=== PATIENT | male | born 1990 | race Caucasian/White ===

== ENCOUNTER 2016-04-03 22:35 | Observation (INO) | payer SELFPAY ==
[~2016-04-03] VITALS: Ht 185.4 cm; Wt 70.3 kg
[2016-04-03] MEDS ORDERED: HYDROMORPHONE 2 MG/ML VIAL. IV PRN (23:15)
[2016-04-03] MEDS ORDERED: IV NORMAL SALINE 1000ML BAG 1,000 ML IV ONE (23:15)
[2016-04-03] MEDS ORDERED: ONDANSETRON PF 4 MG/2 ML VIAL. IV ONE (23:15)
[2016-04-03 23:19] LABS: BASO # 0.1 x10^3/uL (0.0-0.2); BASO % 0 % (0-3); EOS % 2 % (0-3); HEMATOCRIT 45.9 % (39.0-53.0); HEMOGLOBIN 15.3 g/dL (13.0-17.5); LYMPH # 2.9 x10^3/uL (1.0-4.8); LYMPH % 17 % (24-48); MEAN CORPUSCULAR HEMOGLOBIN 32 pg (25-35); MEAN CORPUSCULAR HGB CONC 33 g/dL (31-37); MEAN CORPUSCULAR VOLUME 96 fL (79-100); MONO % 7 % (0-9); NEUT % 74 % (31-73); PLATELET COUNT 189 x10^3/uL (140-400); RED BLOOD COUNT 4.76 x10^6/uL (4.30-5.70); RED CELL DISTRIBUTION WIDTH 13.4 % (11.5-14.5); WHITE BLOOD COUNT 17.7 x10^3/uL (4.0-11.0)
[2016-04-03 23:32] LABS: CALCIUM 8.9 mg/dL (8.5-10.1); GFR 92.6; POTASSIUM 4.2 mmol/L (3.5-5.1)
[2016-04-03 23:38] LABS: ALBUMIN 4.4 g/dL (3.4-5.0); ALBUMIN/GLOBULIN RATIO 1.6 (1.0-1.7); TOTAL BILIRUBIN 0.3 mg/dL (0.2-1.0); TOTAL PROTEIN 7.2 g/dL (6.4-8.2)
[2016-04-04] MEDS ORDERED: IOHEXOL 300 MG/ML 100ML VIAL. IV ONE (00:15)
[2016-04-04] MEDS ORDERED: CONTRAST GIVEN MC PRN (00:15)
[2016-04-04 00:20] LABS: BACTERIA,URINE 0 /HPF (0-FEW); BILIRUBIN,URINE NEGATIVE (NEG); GLUCOSE,URINE NEGATIVE (NEG); NITRITE,URINE NEGATIVE (NEG); PH,URINE 7.5; PROTEIN,URINE NEGATIVE (NEG-TRACE); RBC,URINE 0 /HPF (0-2); WBC,URINE 0 /HPF (0-4)
--- NOTE | 2016-04-04 00:52 | RAD ---
PROCEDURE Abdomen and pelvis CT with intravenous contrast. HISTORY Right lower quadrant pain. TECHNIQUE Computed tomographic images of the abdomen pelvis were obtained following the administration of 75 cc Omnipaque 300 intravenous contrast. One or more of the following individualized dose reduction techniques were utilized for this examination: 1. Automated exposure control; 2. Adjustment of the mA and/or kV according to patient size; 3. Use of iterative reconstruction technique. COMPARISON None. FINDINGS Evaluation of the lower thorax demonstrates focal pleural-parenchymal scarring within the posterior lateral right lower lobe. There is no infiltrate or effusion. No hepatic lesion is seen. The gallbladder, pancreas, spleen, adrenal glands and kidneys are unremarkable. The appendix is dilated to a caliber of 8 mm and there is surrounding trace periappendiceal fluid suggesting acute appendicitis. No perforation is seen. There is no bowel obstruction. There is no pathologically enlarged lymph node. The bladder is unremarkable. The osseous structures are unremarkable. IMPRESSION Mildly dilated appendix with trace surrounding fluid suggesting acute appendicitis. No perforation is seen. Electronically signed by: Karli Duff (Apr 04, 2016 00:49:51)
[2016-04-04] MEDS ORDERED: IV NORMAL SALINE 1000ML BAG 1,000 ML IV ONE ×2 (01:15→01:30)
--- NOTE | 2016-04-04 01:15 | PHYS DOC ---
Past Medical History Past Medical History: No Pertinent History Past Surgical History: No Surgical History Alcohol Use: Rarely Drug Use: Marijuana Adult General Chief Complaint Chief Complaint: ABDOMINAL PAIN HPI HPI 25-year-old male presenting the emergency department with right lower quadrant abdominal pain. His pain is sharp nonradiating moderate, has been present since this morning. He rates it at is 6 and 10. He denies fevers or chills. He denies nausea vomiting. Review of Systems Review of Systems ROS negative for chest pain shortness of breath fevers or chills. Negative for headaches All other review of systems is negative unless otherwise noted in history of present illness. Current Medications Current Medications Current Medications Medications (Trade) Dose Ordered Sig/Lena Start Time Stop Time Status Last Admin Dose Admin Hydromorphone HCl (Dilaudid) 0.5 mg PRN Q1HR PRN 04/03/16 23:15 04/03/16 23:28 0.5 MG Info (Do NOT chart on this entry -- for MONITORING) 1 each PRN DAILY PRN 04/04/16 00:15 04/06/16 00:14 Iohexol (Omnipaque 300 Mg/ml) 75 ml 1X ONCE 04/04/16 00:15 04/04/16 00:16 DC 04/04/16 00:22 75 ML Morphine Sulfate 2 mg 2 mg PRN Q2HR PRN 04/04/16 01:30 04/05/16 01:29 04/04/16 02:17 2 MG Ondansetron HCl (Zofran) 4 mg PRN Q8HRS PRN 04/04/16 01:30 04/05/16 01:29 Piperacillin Sod/ Tazobactam Sod 1 each 1 each PRN DAILY PRN 04/04/16 01:30 Piperacillin Sod/ Tazobactam Sod/ Sodium Chloride (Zosyn/Iv Sodium Chloride 0.9% 50ml) 50 ml @ 100 mls/hr 1X ONCE 04/04/16 02:00 04/04/16 02:29 DC 04/04/16 02:07 100 MLS/HR Sodium Chloride 1,000 ml @ 100 mls/hr 1X ONCE 04/04/16 01:30 04/04/16 11:29 Sodium Chloride (Iv Sodium Chloride 0.9% 1000ml Bag) 1,000 ml @ 1,000 mls/hr 1X ONCE 04/04/16 01:15 04/04/16 02:14 DC 04/04/16 02:05 1,000 MLS/HR Allergies Allergies Allergies Coded Allergies Type Severity Reaction Last Updated Verified No Known Drug Allergies 11/05/13 No Physical Exam Physical Exam Constitutional: Well developed, well nourished, no acute distress, non-toxic appearance. [] HENT: Normocephalic, atraumatic, bilateral external ears normal, oropharynx moist, no oral exudates, nose normal. [] Eyes: PERRLA, EOMI, conjunctiva normal, no discharge. [] Neck: Normal range of motion, no tenderness, supple, no stridor. [] Cardiovascular:Heart rate regular rhythm, no murmur [] Lungs & Thorax: Bilateral breath sounds clear to auscultation [] Abdomen: Soft and tender in the right lower quadrant. Positive McBurney's point. Negative Jerome sign. No rebound tenderness present Skin: Warm, dry, no erythema, no rash. [] Back: No tenderness, no CVA tenderness. [] Extremities: No tenderness, no cyanosis, no clubbing, ROM intact, no edema. [] Neurologic: Alert and oriented X 3, normal motor function, normal sensory function, no focal deficits noted. [] Psychologic: Affect normal, judgement normal, mood normal. [] Current Patient Data Vital Signs Vital Signs Date Time Temp Pulse Resp B/P Pulse Ox O2 Delivery O2 Flow Rate FiO2 04/04/16 00:00 Room Air 04/03/16 22:43 98.1 75 20 171/66 99 98.1 Lab Values Laboratory Tests Test 04/03/16 22:50 04/03/16 23:50 White Blood Count 17.7x10^3/uL (4.0-11.0) H Red Blood Count 4.76x10^6/uL (4.30-5.70) Hemoglobin 15.3g/dL (13.0-17.5) Hematocrit 45.9% (39.0-53.0) Mean Corpuscular Volume 96fL (79-100) Mean Corpuscular Hemoglobin 32pg (25-35) Mean Corpuscular Hemoglobin Concent 33g/dL (31-37) Red Cell Distribution Width 13.4% (11.5-14.5) Platelet Count 189x10^3/uL (140-400) Neutrophils (%) (Auto) 74% (31-73) H Lymphocytes (%) (Auto) 17% (24-48) L Monocytes (%) (Auto) 7% (0-9) Eosinophils (%) (Auto) 2% (0-3) Basophils (%) (Auto) 0% (0-3) Neutrophils # (Auto) 13.2x10^3uL (1.8-7.7) H Lymphocytes # (Auto) 2.9x10^3/uL (1.0-4.8) Monocytes # (Auto) 1.3x10^3/uL (0.0-1.1) H Eosinophils # (Auto) 0.3x10^3/uL (0.0-0.7) Basophils # (Auto) 0.1x10^3/uL (0.0-0.2) Platelet Estimate Pending Sodium Level 142mmol/L (136-145) Potassium Level 4.2mmol/L (3.5-5.1) Chloride Level 105mmol/L (98-107) Carbon Dioxide Level 27mmol/L (21-32) Anion Gap 10 (6-14) Blood Urea Nitrogen 16mg/dL (8-26) Creatinine 1.0mg/dL (0.7-1.3) Estimated GFR (Cockcroft-Gault) 92.6 BUN/Creatinine Ratio 16 (6-20) Glucose Level 108mg/dL (70-99) H Calcium Level 8.9mg/dL (8.5-10.1) Total Bilirubin 0.3mg/dL (0.2-1.0) Aspartate Amino Transferase (AST) 16U/L (15-37) Alanine Aminotransferase (ALT) 24U/L (16-63) Alkaline Phosphatase 78U/L (46-116) Troponin I Quantitative < 0.017ng/mL (0.000-0.055) Total Protein 7.2g/dL (6.4-8.2) Albumin 4.4g/dL (3.4-5.0) Albumin/Globulin Ratio 1.6 (1.0-1.7) Lipase 98U/L (73-393) Urine Collection Type Unknown Urine Color Yellow Urine Clarity Hazy Urine pH 7.5 Urine Specific [place] 1.025 Urine Protein Negativemg/dL (NEG-TRACE) Urine Glucose (UA) Negativemg/dL (NEG) Urine Ketones (Stick) Negativemg/dL (NEG) Urine Blood Negative (NEG) Urine Nitrite Negative (NEG) Urine Bilirubin Negative (NEG) Urine Urobilinogen Dipstick 1.0mg/dL (0.2 mg/dL) Urine Leukocyte Esterase Negative (NEG) Urine RBC 0/HPF (0-2) Urine WBC 0/HPF (0-4) Urine Amorphous Sediment Present/HPF Urine Bacteria 0/HPF (0-FEW) Urine Mucus Mod/LPF Laboratory Tests 04/03/16 22:50 Laboratory Tests 04/03/16 22:50 EKG EKG [] Radiology/Procedures Radiology/Procedures [] CT the abdomen and pelvis consistent with appendicitis. Course & Med Decision Making Course & Med Decision Making Pertinent Labs and Imaging studies reviewed. (See chart for details) [] 25-year-old male presenting with right lower quadrant abdominal pain. Signs and symptoms suggestive of appendicitis. Blood work showed elevated white count. CT abdomen and pelvis confirmed appendicitis. IV fluids administered. IV antibiotics ordered. The patient was then admitted to our hospital for surgical treatment. Dragon Disclaimer Dragon Disclaimer This electronic medical record was generated, in whole or in part, using a voice recognition dictation system. Departure Departure Impression: Primary Impression: Acute appendicitis Disposition: 09 ADMITTED INPATIENT Admitting Physician: Edi Aceves Condition: STABLE Referrals: NO PCP (PCP) SHAUN SANTOYO MD Apr 04, 2016 01:15
--- NOTE | 2016-04-04 01:27 | ACF ---
Admission Forms Criteria ABDOMINAL PAIN Clinical Indications for Admission to Inpatient Care (Place 'X' for any and all applicable criteria): Admission is indicated for ANY ONE of the following(1)(2)(3)(4)(5): [X]I. Inpatient admission required rather than observation care (Also use Abdominal Pain: Observation Care, as appropriate) because of ANY ONE of the following: [ ]a) Severe pain requiring acute inpatient management [ ]b) Identification of etiology/finding that requires inpatient care (eg, aortic dissection, free air) [ ]c) Absent bowel sounds with complete ileus(6) [ ]d) Suspected toxic megacolon [ ]e) Severe electrolyte abnormalities requiring inpatient care [ ]f) High fever or infection requiring inpatient admission as indicated by ANY ONE of following(7)(8): [ ] i) Appropriate outpatient or observational care antimicrobial treatment unavailable, not effective, or not feasible [ ] ii) Documented bacteremia [ ] iii) Temperature > 104.9 degrees F (oral) [ ] iv) T >103.1 F (oral) or < 96.8 F(rectal) that does not respond to all emergency treatment measures [ ]g) Signs of intestinal obstruction [B] [ ]h) Hemodynamic instability [ ]i) IV fluid to replace significant ongoing losses (greater than 3 L/m2 per day) (12)(13) [ ]j) Percutaneous or open drainage (eg, abscess, biliary tract ) procedures [ ]k) Parenteral nutrition regimen that must be implemented on inpatient basis [X]l) Other condition,treatment or monitoring requiring inpatient admission. [ ]II. Peritoneal signs present [ ]III. Surgery needed that cannot be performed on an ambulatory basis. [ ]IV. Evaluation requires patient to not eat or drink for extended period ( eg, more than 24 hours). [ ]V. Contraindications and/or Inappropriate clinical situations for Observational Care in patients with abdominal pain, when ANY ONE of the following is required: [ ]a) Thorough evaluation is required to prevent catastrophic events due to delays in diagnosing (e.g.Mesenteric ischemia) 1,3 [ ]b) Patient with severe pathology or with chronic symptoms unlikely to improve in the ED stay (3) [ ]. General contraindications and/or Inappropriate clinical situations for Observational Care in patients with abdominal pain, when ANY ONE of the following is required: [ ]a) Prediction of prolongation of LOS based on ANY ONE of the following may be considered as a contraindication for observational care 2, 3, 4, 5, 6, 7, 8, 9, 10, 11 [ ]i) Age > 65 yrs. [ ]ii) Patient arriving by ambulance [ ]iii) Patient with high acuity [ ]iv) Patient requiring vital sign monitoring [ ]v) Patient on IV medication [ ]b) Systolic blood pressures 180mmHg 3,12 [ ]c) Patient with altered mental status including delirium and other alteration of consciousness, (3) [ ]d) Patient whose discharge disposition will be to a correction home or rehabilitation home should not be managed in Emergency Department Observation Unit. CMS rule requires 3 days hospital stay before such placement.3,13 [ ]e) Patient with failure to thrive due to broad array of etiologies 3,16,17 [ ]f) Inability to ambulate 3,14 Extended stay beyond goal length of stay may be needed for(2)(3): [ ]a) Persistent abdominal pain with suspected intra-abdominal process [ ]b) Diagnosed condition requiring continued stay (e.g., pancreatitis, complicated diverticulitis) [ ]c) Surgery (e.g., colectomy) The original [facility] content created by [employer] has been revised. The portions of the content which have been revised are identified through the use of italic text or in bold, and [facility] has neither reviewed nor approved the modified material.All other unmodified content is copyright [employer]. Please see references footnoted in the original [facility] edition 2016 Admission Criteria Met?: Pending SHARRON ANDREA Apr 04, 2016 01:27
[2016-04-04] MEDS ORDERED: PIP/TAZO PER PHARMACY MC PRN (01:30)
[2016-04-04] MEDS ORDERED: ONDANSETRON PF 4 MG/2 ML VIAL. IV PRN ×3 (01:30→13:00)
[2016-04-04] MEDS ORDERED: PIPERACILLIN/TAZOBACTAM 3.375 GM in IV NORMAL SALINE 50ML 50 ML IV ONE (02:00)
[2016-04-04] MEDS: MORPHINE SULFATE 2 MG/ML DISP.SYRIN. IV PRN ×2 (02:17→05:54)
[2016-04-04 03:30] VITALS: BP 143/84
[2016-04-04 04:57] LABS: % EOS 2 % (0-5); PLT ESTIMATE ADEQUATE (ADEQUATE)
[2016-04-04] MEDS: PIPERACILLIN/TAZOBACTAM 3.375 GM in IV NORMAL SALINE 50ML 50 ML IV SCH ×2 (05:55→11:59)
[2016-04-04 07:00] VITALS: BP 146/58
[2016-04-04] MEDS ORDERED: METRONIDAZOLE 500mg PREMIX 100 ML IV ONE (08:15)
[2016-04-04] MEDS ORDERED: IV RINGERS,LACTATED 1000ML 1,000 ML IV SCH (08:26)
[2016-04-04] MEDS ORDERED: PROCHLORPERAZINE 10 MG/2 ML VIAL. IV PRN (08:30)
[2016-04-04] MEDS ORDERED: FENTANYL PF 100 MCG/2 ML VIAL. IV PRN (08:30)
[2016-04-04] MEDS ORDERED: MORPHINE SULFATE 2 MG/ML DISP.SYRIN. IV PRN (08:30)
[2016-04-04] MEDS ORDERED: HYDROMORPHONE 2 MG/ML VIAL. IV PRN ×3 (08:30→13:11)
[2016-04-04] MEDS ORDERED: LIDOCAINE 1% 1 ML SYRINGE. ID PRN (08:30)
[2016-04-04] MEDS ORDERED: NICOTINE 21MG PATCH. TD SCH (09:00)
[2016-04-04] MEDS ORDERED: SEVOFLURANE 31 TO 60 MINUTES. IH ONE (10:40)
[2016-04-04] MEDS ORDERED: SEVOFLURANE > 120 MINUTES. IH ONE (10:40)
[2016-04-04] MEDS ORDERED: FENTANYL PF 100 MCG/2 ML VIAL. ONE ×2 (10:41→12:31)
[2016-04-04] MEDS ORDERED: MIDAZOLAM HCL 2 MG/2 ML VIAL. ONE (10:41)
[2016-04-04] MEDS ORDERED: PROPOFOL 20 ML IV ONE (10:42)
[2016-04-04] MEDS ORDERED: GLYCOPYRROLATE 1 MG/5 ML VIAL. ONE (10:42)
[2016-04-04] MEDS ORDERED: NEOSTIGMINE METHYLSULFATE 5 MG/5 ML SYRINGE. ONE (10:42)
[2016-04-04] MEDS ORDERED: ONDANSETRON PF 4 MG/2 ML VIAL. ONE (10:43)
[2016-04-04] MEDS ORDERED: KETOROLAC 30 MG/ML SYRINGE FOR OR. INJ ONE (10:43)
[2016-04-04] MEDS ORDERED: ROCURONIUM 50 MG/5 ML VIAL. ONE (10:43)
[2016-04-04] MEDS ORDERED: LIDOCAINE 2% 100 MG/5 ML DISP.SYRIN. ONE (10:43)
[2016-04-04] MEDS ORDERED: DEXAMETHASONE SOD PHOS 20 MG/5 ML VIAL. ONE (10:43)
[2016-04-04] MEDS ORDERED: SUCCINYLCHOLINE 200 MG/10 ML VIAL. ONE (10:44)
--- NOTE | 2016-04-04 11:33 | HP ---
ADMIT DATE: 04/04/2016 CHIEF COMPLAINT: Abdominal pain. HISTORY OF PRESENT ILLNESS: The patient is a pleasant 25-year-old healthy male who presents with right lower quadrant pain, rates it at 10/10. He has associated nausea. It has been going on for a couple of days. CT of the abdomen is showing a probable appendicitis. I discussed the case with ER physician. We have admitted the patient. We have consulted . I think the patient is going to surgery today. PAST MEDICAL HISTORY: None. ALLERGIES: None. FAMILY HISTORY: Hypertension. SOCIAL HISTORY: Does not drink, smoke or take drugs. MEDICATIONS: Reviewed, please refer to the MRAD. REVIEW OF SYSTEMS: GENERAL: No history of weight change, weakness or fevers. SKIN: No bruising, hair changes or rashes. EYES: No blurred, double or loss of vision. NOSE AND THROAT: No history of nosebleeds, hoarseness or sore throat. HEART: No history of palpitations, chest pain or shortness of breath on exertion. LUNGS: Denies cough, hemoptysis, wheezing or shortness of breath. GASTROINTESTINAL: He complains of abdominal pain. GENITOURINARY: No history of frequency, urgency, hesitancy or nocturia. NEUROLOGIC: Denies history of numbness, tingling, tremor or weakness. PSYCHIATRIC: No history of panic, anxiety or depression. ENDOCRINE: No history of heat or cold intolerance, polyuria or polydipsia. EXTREMITIES: Denies muscle weakness, joint pain, pain on walking or stiffness. PHYSICAL EXAMINATION: VITAL SIGNS: Temperature afebrile, pulse 50, respirations 18, blood pressure 146/60. GENERAL: He is alert, cooperative. HEART: Normal S1, S2 at 60 beats per minute. LUNGS: Clear. ABDOMEN: Soft, positive bowel sounds, tender in the lower quadrant on the right. EXTREMITIES: No edema. SKIN: He has got multiple tattoos. ENDOCRINE: No thyromegaly. LYMPHATICS: No cervical nodes. HEMATOPOIETIC: No bruising. LABORATORY DATA: White count 17.7, hemoglobin 15, platelets 189. Electrolytes normal. Troponin is 0. CT of the abdomen shows appendicitis. Urinalysis is negative. ASSESSMENT AND PLAN: Appendicitis. The patient has been admitted. him IV Zosyn. Consult General Surgery. Narcotics p.r.n., p.r.n. antiemetics, IV fluids. ESTEFANIA WAITE DO DR: GRACE/teddy JOB#: [id number] / [id number]
[2016-04-04] MEDS ORDERED: POTASSIUM CL 20MEQ-0.45% NACL 1,000 ML IV SCH (12:50)
--- NOTE | 2016-04-04 12:50 | PDOC ---
BRIEF OPERATIVE NOTE Date: Apr 04, 2016 Pre-Op Diagnosis acute appendicitis Post-Op Diagnosis same Procedure Performed l/s appendectomy Surgeon Osmar Anesthesia Type: General Blood Loss 5cc IV Fluid 800cc Urine Output 175cc Specimens Obtained appendix Findings acute suppurative appendicitis without rupture Complications none Additional Remarks Wk # [id number] TRIXIE MANZANO MD Apr 04, 2016 12:50
[2016-04-04] MEDS: FENTANYL PF 100 MCG/2 ML VIAL. IV PRN ×2 (12:57→13:01)
[2016-04-04] MEDS ORDERED: OXYCODONE/APAP 5/325 TABLET. PO PRN (13:00)
[2016-04-04] MEDS ORDERED: DIPHENHYDRAMINE 50 MG/ML VIAL IV PRN (13:00)
[2016-04-04] MEDS ORDERED: 0.9 % SODIUM CHLORIDE 10 ML DISP.SYRIN. IV PRN (13:00)
[2016-04-04] MEDS ORDERED: DEXTROSE 50% 25 GM / 50ML DISP.SYRIN. IV PRN (13:00)
[2016-04-04] MEDS ORDERED: DIPHENHYDRAMINE HCL 25 MG CAPSULE PO PRN (13:00)
[2016-04-04 13:30] VITALS: BP_SYST 114; BP_SYST 125; BP_SYST 132; BP_SYST 135; BP_SYST 141; BP_SYST 143; BP_DIAS 54; BP_DIAS 62; BP_DIAS 65; BP_DIAS 75; BP_DIAS 79; BP_DIAS 81; BP_DIAS 82
[2016-04-04 15:00] VITALS: BP 123/60
--- NOTE | 2016-04-04 17:09 | OP ---
DATE OF SURGERY: 04/04/2016 PREOPERATIVE DIAGNOSIS: Acute appendicitis. POSTOPERATIVE DIAGNOSIS: Acute appendicitis. PROCEDURE: Laparoscopic appendectomy. SURGEON: Fahad Manzano MD. ANESTHESIA: General endotracheal. BLOOD LOSS: 5 mL. IV FLUID: 800 mL. URINE OUTPUT: 175 mL. INDICATIONS: The patient is a 25-year-old with right lower quadrant pain and a CT scan consistent with acute appendicitis, brought for appendectomy. OPERATIVE FINDINGS: He did indeed have an acute suppurative appendicitis without evidence of rupture. DESCRIPTION OF PROCEDURE: The patient brought to the operating suite, given a general endotracheal anesthetic and the abdomen prepped and draped in usual sterile fashion after placement of a Tubbs catheter to dependent drainage. An infraumbilical incision was made and a 5 mm Visiport used to gain access into the abdominal cavity. Care was taken to avoid injury to abdominal contents. Pneumoperitoneum established. Camera inserted and inspection carried out with results as noted above. With the table in Trendelenburg rolled to the left, the suprapubic and left lower quadrant ports were placed under direct vision. The appendix was gently mobilized off the lateral pelvic wall to allow visualization of the base of the appendix. A small opening was created between the base of the appendix and the mesoappendix to allow passage of the Endo-TOM stapler with a tissue load to amputate the base of the appendix. The mesoappendix was then serially divided with a vascular load of the Endo-TOM and the appendix was placed in an EndoCatch bag. Medium large clips were used to augment hemostasis along the staple lines on the mesoappendix. Intraabdominal pressure decreased to 6 cm of water. No bleeding from the staple lines was identified. Table returned to level. Appendix delivered through the umbilical incision. Umbilical incision closed with interrupted 0-Vicryl suture. Again, 6 cm of water. No bleeding from the umbilical closure or from the left lower quadrant port site after its removal. Abdomen decompressed, camera slowly removed, no bleeding seen. Skin incisions closed with subcuticular 4-0 Monocryl and Steri-Strips or 5-0 nylon. Sterile dressings applied. Tubbs catheter removed. The patient was awakened from his anesthetic and taken to the recovery room in satisfactory condition. FAHAD MANZANO MD DR: AJIT/teddy JOB#: [id number] / [id number]
[2016-04-04] MEDS: OXYCODONE/APAP 5/325 TABLET. PO PRN ×2 (17:48→19:43)
[2016-04-04 19:20] VITALS: BP 146/83
--- NOTE | 2016-04-04 20:45 | DISCH ---
DISCHARGE INSTRUCTIONS Condition on Discharge Condition on Discharge: Stable Activity After Discharge Activity Instructions for Disc: Activity as tolerated, Avoid exertion Lifting Instructions after Dis: No heavy lifting Driving Instructions after Dis: Do not drive (3-4 days) Diet after Discharge Diet after Discharge: Regular Wound Incision Care Other wound/incision instructi: manan shower Monday Follow-Up Follow up with: Osmar 04/11 TRIXIE MANZANO MD Apr 04, 2016 20:45
[2016-04-04] MEDS ORDERED: DOCUSATE SODIUM 100 MG CAPSULE PO SCH (21:00)
--- NOTE | 2016-04-06 11:09 | PATHOLOGY ---
PATHOLOGY REPORT * * * * * * * * FINAL DIAGNOSIS: Appendix, appendectomy: - Acute appendicitis with focal serosal exudate. COMMENT: There is no evidence of rupture. (JPM:all; d/t: 04/06/2016) REPORT ELECTRONICALLY SIGNED BY: Nathaniel Zamudio M.D. DATE/TIME: 04/06/2016 11:08 * * * * * * * * GROSS PATHOLOGY: Received in formalin labeled "Lawrence Deras and appendix," is an appendix measuring 7.8 cm in length and 0.7 cm in diameter with a moderate amount of attached mesoappendix. The serosal surface is pink-anthony, well vascularized, and displays adhesions and minimal white-anthony exudate. Sectioning reveals a 0.3 cm in diameter lumen filled with hemorrhagic and friable soft material. The mucosa is pink-anthony and grossly unremarkable. The wall is uniform and measures 0.2 cm in thickness. The appendix is entirely submitted as follows: A1 bisected distal tip and proximal resection margin A2-A3 remainder of appendix (TTL; 04/05/2016) INITIAL CPT CODE(S): A; 54335 Professional services performed [place] [facility] [address] Technical services performed by [facility] at [address] [place] [address], [address] [address]. SPECIMEN(S) RECEIVED: A.Appendix CLINICAL HISTORY: Acute appendicitis PATIENT: LAWRENCE DERAS /AGE: 710/18/1990 (Age: 25) PATIENT #: [id number] ALT CASE #: SPECIMEN COLLECTION DATE: 04/04/2016 SPECIMEN RECEIVED DATE: 04/05/2016 [facility] - [address] [place] [address] - PHONE: [phone] * * * END OF REPORT * * *
== END 2016-04-04 21:25 | disposition home or self-care (01) ==
LOC: ER 22:35 → 4 NORTH 04-04 02:01
PROVIDERS: ADMIT Internal Medicine; ATTEND Internal Medicine
DX: K35.80 Unspecified acute appendicitis (principal)
CPT/HCPCS: 36415; 44970; 74177; 80053; 81001; 83690; 84484; 85007; 85027; 88304; 96365; 96366; 96375; 96376; 99285; C1782; G0378; J0330; J1100; J1170; J1885; J2250; J2270; J2405; J2543; J2704; J2710; J3010; J3490; J7030; Q9967; G0379

== ENCOUNTER 2016-08-15 22:04 | Emergency (ER) | payer SELFPAY ==
[~2016-08-15] VITALS: Ht 185.4 cm; Wt 72.6 kg
[2016-08-15 22:30] VITALS: BP 148/76
[2016-08-15] MEDS ORDERED: LIDO20SO PO (23:07)
[2016-08-15] MEDS ORDERED: AMOX875T PO (23:07)
[2016-08-15] MEDS ORDERED: PRED50TA PO (23:07)
--- NOTE | 2016-08-15 23:08 | PHYS DOC ---
Past Medical History Past Medical History: No Pertinent History Past Surgical History: No Surgical History Alcohol Use: Rarely Drug Use: Marijuana Adult General Chief Complaint Chief Complaint: SORE THROAT [facility] HPI Patient is a 25 year old male who presents with sore throat that began 2 days ago. He states he has tried taking clindamycin from a previous dental infection prescription with no success. Patient denies any fever. Review of Systems Review of Systems Constitutional: Denies fever or chills [] Eyes: Denies change in visual acuity, redness, or eye pain [] HENT: sore throat [] Respiratory: Denies cough or shortness of breath [] Cardiovascular: No additional information not addressed in HPI [] GI: Denies abdominal pain, nausea, vomiting, bloody stools or diarrhea [] : Denies dysuria or hematuria [] Musculoskeletal: Denies back pain or joint pain [] Integument: Denies rash or skin lesions [] Neurologic: Denies headache, focal weakness or sensory changes [] Endocrine: Denies polyuria or polydipsia [] Allergies Allergies Allergies Coded Allergies Type Severity Reaction Last Updated Verified No Known Drug Allergies 11/05/13 No Physical Exam Physical Exam Constitutional: Well developed, well nourished, no acute distress, non-toxic appearance. [] HENT: Normocephalic, atraumatic, bilateral external ears normal, oropharynx moist, nose normal. [] Posterior pharynx with mild erythema no exudate +2 anterior cervical adenopathy Eyes: PERRLA, EOMI, conjunctiva normal, no discharge. [] Neck: Normal range of motion, no tenderness, supple, no stridor. [] Cardiovascular:Heart rate regular rhythm, no murmur [] Lungs & Thorax: Bilateral breath sounds clear to auscultation [] Abdomen: Bowel sounds normal, soft, no tenderness, no masses, no pulsatile masses. [] Skin: Warm, dry, no erythema, no rash. [] Back: No tenderness, no CVA tenderness. [] Extremities: No tenderness, no cyanosis, no clubbing, ROM intact, no edema. [] Neurologic: Alert and oriented X 3, normal motor function, normal sensory function, no focal deficits noted. [] Psychologic: Affect normal, judgement normal, mood normal. [] Current Patient Data Vital Signs Vital Signs Date Time Temp Pulse Resp B/P (MAP) Pulse Ox O2 Delivery O2 Flow Rate FiO2 08/15/16 22:30 98.7 73 14 98 Room Air 98.7 EKG EKG [] Radiology/Procedures Radiology/Procedures [] Course & Med Decision Making Course & Med Decision Making Pertinent Labs and Imaging studies reviewed. (See chart for details) Patient was seen for pharyngitis. Discharged with amoxicillin. Tylenol/ Motrin for pain or fever. Follow-up with primary care doctor in 1-2 weeks. Encouraged to complete antibiotics. Dragon Disclaimer Dragon Disclaimer This electronic medical record was generated, in whole or in part, using a voice recognition dictation system. Departure Departure Impression: Primary Impression: Pharyngitis Disposition: HOME, SELF-CARE Condition: STABLE Referrals: NO PCP (PCP) Follow-up with your own doctor in 1-2 weeks Patient Instructions: Viral and Bacterial Pharyngitis Additional Instructions: You were seen for pharyngitis. Please complete the medications we sent you home with. You can use saltwater gargles for sore throat as well. Follow-up with your own doctor in one week. Scripts Lidocaine Hcl (LIDOCAINE HCL VISCOUS) 20 Mg/1 Ml Solution 5 ML PO TID, #100 ML Prov: THAI HONG APRN 08/15/16 Prednisone (PREDNISONE) 50 Mg Tablet 1 TAB PO DAILY, #5 TAB Prov: THAI HONG APRN 08/15/16 Amoxicillin (AMOXICILLIN) 875 Mg Tablet 1 TAB PO BID, #20 TAB Prov: THAI HONG APRN 08/15/16 Problem Qualifiers Primary Impression: Pharyngitis Pharyngitis/tonsillitis etiology: unspecified etiology Qualified Codes: J02.9 - Acute pharyngitis, unspecified THAI HONG APRN August 15, 2016 23:08
[2016-08-16 07:28] LABS: NEGATIVE OBC STREP NEG; POSITIVE OBC STREP POS
== END 2016-08-15 23:12 | disposition home or self-care (01) ==
LOC: ER 22:04
DX: J02.9 Acute pharyngitis, unspecified (principal); F12.10 Cannabis abuse, uncomplicated
CPT/HCPCS: 87070; 87880; 99283

== ENCOUNTER 2016-10-07 19:32 | Emergency (ER) | payer SELFPAY ==
[~2016-10-07 19:32] MED LIST: AMOX875T PO; LIDO20SO PO; PRED50TA PO
[2016-10-07 20:16] VITALS: BP 138/82
[2016-10-07] MEDS ORDERED: PRED50TA PO (20:21)
[2016-10-07] MEDS ORDERED: DIPH25CA58 PO (20:21)
--- NOTE | 2016-10-07 20:21 | PHYS DOC ---
Past Medical History Past Medical History: No Pertinent History Past Surgical History: No Surgical History Alcohol Use: Rarely Drug Use: Marijuana Adult General Chief Complaint Chief Complaint: INSECT BITE HPI HPI Patient is a 25 year old male presents to the emergency department complaining of a bee sting to the right upper extremity. He states 2 days ago he was stung by a bee. He notes increased swelling today and is here seeking evaluation. Denies shortness of breath, rash. Review of Systems Review of Systems Constitutional: Denies fever or chills [] Eyes: Denies change in visual acuity, redness, or eye pain [] HENT: Denies nasal congestion or sore throat [] Respiratory: Denies cough or shortness of breath [] Cardiovascular: No additional information not addressed in HPI [] GI: Denies abdominal pain, nausea, vomiting, bloody stools or diarrhea [] : Denies dysuria or hematuria [] Musculoskeletal: Denies back pain or joint pain [] Integument: Swelling and redness upper extremity. Neurologic: Denies headache, focal weakness or sensory changes [] Endocrine: Denies polyuria or polydipsia [] Allergies Allergies Allergies Coded Allergies Type Severity Reaction Last Updated Verified No Known Drug Allergies 11/05/13 No Physical Exam Physical Exam Constitutional: Well developed, well nourished, no acute distress, non-toxic appearance. [] HENT: Normocephalic, atraumatic, bilateral external ears normal, oropharynx moist, no oral exudates, nose normal. [] Eyes: PERRLA, EOMI, conjunctiva normal, no discharge. [] Neck: Normal range of motion, no tenderness, supple, no stridor. [] Cardiovascular:Heart rate regular rhythm, no murmur [] Lungs & Thorax: Bilateral breath sounds clear to auscultation [] Abdomen: Bowel sounds normal, soft, no tenderness, no masses, no pulsatile masses. [] Skin: Right upper extremity, proximal to the elbow medial, small papular lesion. The forearm has mild swelling, mild erythema without warmth or tenderness. Neurovascular is intact distally. Full range of motion both active and passive without difficulty or increasing pain. Lymph: No lymphadenopathy. Back: No tenderness, no CVA tenderness. [] Extremities: No tenderness, no cyanosis, no clubbing, ROM intact, no edema. [] Neurologic: Alert and oriented X 3, normal motor function, normal sensory function, no focal deficits noted. [] Psychologic: Affect normal, judgement normal, mood normal. [] EKG EKG [] Radiology/Procedures Radiology/Procedures [] Course & Med Decision Making Course & Med Decision Making Pertinent Labs and Imaging studies reviewed. (See chart for details) [] Dragon Disclaimer Dragon Disclaimer This electronic medical record was generated, in whole or in part, using a voice recognition dictation system. Departure Departure Impression: Primary Impression: Local reaction to bee sting Disposition: HOME, SELF-CARE Condition: STABLE Referrals: NO PCP (PCP) Patient Instructions: Bee, Wasp, or Hornet Sting Scripts Diphenhydramine Hcl (BENADRYL) 25 Mg Capsule 2 CAP PO every 6 hours Y for ALLERGIES, #30 CAP 1 Refill Prov: RAMSES FU APRN 10/07/16 Prednisone (PREDNISONE) 50 Mg Tablet 1 TAB PO DAILY, #5 TAB Prov: RAMSES FU APRN 10/07/16 RAMSES FU APRN Oct 07, 2016 20:21
== END 2016-10-07 20:40 | disposition home or self-care (01) ==
LOC: ER 19:32
DX: T63.441A Toxic effect of venom of bees, accidental (unintentional), initial encounter (principal); F12.10 Cannabis abuse, uncomplicated; Y92.89 Other specified places as the place of occurrence of the external cause
CPT/HCPCS: 99283

== ENCOUNTER 2017-05-17 19:23 | Emergency (ER) | payer SELFPAY | END 2017-05-17 20:44 | disposition home or self-care (01) | LOC: ER 20:44 | DX: K04.7 Periapical abscess without sinus (principal); K02.9 Dental caries, unspecified; F17.200 Nicotine dependence, unspecified, uncomplicated; F12.10 Cannabis abuse, uncomplicated; Z90.49 Acquired absence of other specified parts of digestive tract | CPT/HCPCS: 99283 ==

== ENCOUNTER 2018-03-04 11:27 | Emergency (ER) | payer OTHER ==
[~2018-03-04] VITALS: Ht 175.3 cm; Wt 70.3 kg
[~2018-03-04 11:27] MED LIST changes: +DIPH25CA58 PO; +OXYC1TAB15 PO
[2018-03-04 11:45] VITALS: BP 139/88
[2018-03-04] MEDS ORDERED: PENI500T PO (12:04)
[2018-03-04] MEDS ORDERED: HYDR-3164 PO (12:05)
--- NOTE | 2018-03-04 12:05 | PHYS DOC ---
Past Medical History Past Medical History: No Pertinent History Past Surgical History: No Surgical History Alcohol Use: Occasionally Drug Use: Marijuana Adult General Chief Complaint Chief Complaint: DENTAL PROBLEM HPI HPI Patient is a 27 year old male who presents with right upper molar dental caries with abscess. Patient states this same tooth that he's been having problems with for months. Patient has been treated for a abscess before to get 5 pills of amoxicillin left and took about 5 pills the last being yesterday. Right-sided face is swollen. Denies fever. States he does not have a dentist. Took Excedrin at 10 AM this morning. Review of Systems Review of Systems Constitutional: Denies fever or chills [] Eyes: Denies change in visual acuity, redness, or eye pain [] HENT: Right upper molar dental caries with abscess. Denies nasal congestion or sore throat [] Respiratory: Denies cough or shortness of breath [] Cardiovascular: No additional information not addressed in HPI [] GI: Denies abdominal pain, nausea, vomiting, bloody stools or diarrhea [] : Denies dysuria or hematuria [] Musculoskeletal: Denies back pain or joint pain [] Integument: Denies rash or skin lesions [] Neurologic: Denies headache, focal weakness or sensory changes [] Endocrine: Denies polyuria or polydipsia [] All other systems were reviewed and found to be within normal limits, except as documented in this note. Current Medications Current Medications Current Medications Medications (Trade) Dose Ordered Sig/Lena Start Time Stop Time Status Last Admin Dose Admin Acetaminophen/ Hydrocodone Bitart (Lortab 5/325) 1 tab 1X ONCE 03/04/18 12:15 03/04/18 12:15 DC 03/04/18 12:12 1 TAB Allergies Allergies Allergies Coded Allergies Type Severity Reaction Last Updated Verified No Known Drug Allergies 11/05/13 No Physical Exam Physical Exam Constitutional: Well developed, well nourished, no acute distress, non-toxic appearance. [] HENT: Right facial swelling with right upper molar dental caries grandma brought in. Normocephalic, atraumatic, bilateral external ears normal, oropharynx moist, no oral exudates, nose normal. [] Eyes: PERRLA, EOMI, conjunctiva normal, no discharge. [] Neck: Normal range of motion, no tenderness, supple, no stridor. [] Cardiovascular:Heart rate regular rhythm, no murmur [] Lungs & Thorax: Bilateral breath sounds clear to auscultation [] Abdomen: Bowel sounds normal, soft, no tenderness, no masses, no pulsatile masses. [] Skin: Warm, dry, no erythema, no rash. [] Back: No tenderness, no CVA tenderness. [] Extremities: No tenderness, no cyanosis, no clubbing, ROM intact, no edema. [] Neurologic: Alert and oriented X 3, normal motor function, normal sensory function, no focal deficits noted. [] Psychologic: Affect normal, judgement normal, mood normal. [] Current Patient Data Vital Signs Vital Signs Date Time Temp Pulse Resp B/P (MAP) Pulse Ox O2 Delivery O2 Flow Rate FiO2 03/04/18 12:12 16 100 Room Air 03/04/18 11:45 98.6 74 139/88 (105) 98.6 EKG EKG [] Radiology/Procedures Radiology/Procedures [] Course & Med Decision Making Course & Med Decision Making Patient is a 27 year old male who presents with right upper molar dental caries with abscess. Patient states this same tooth that he's been having problems with for months. Patient has been treated for a abscess before to get 5 pills of amoxicillin left and took about 5 pills the last being yesterday. Right-sided face is swollen. Denies fever. States he does not have a dentist. Took Excedrin at 10 AM this morning. Afebrile. Alert And oriented. Skin pink warm and dry. Gumline is swollen without bleeding. Patient is given Dental resources again and told to call tomorrow and also to finish all of his antibiotics. She is given a prescription for penicillin and [employer] and told to take ibuprofen with it also. Patient is stable and in no distress. Patient rates his pain a 10 out of 10. [] Dragon Disclaimer Dragon Disclaimer This electronic medical record was generated, in whole or in part, using a voice recognition dictation system. Departure Departure Impression: Primary Impression: Dental abscess Disposition: 01 HOME, SELF-CARE Condition: STABLE Referrals: NO PCP (PCP) Patient Instructions: Dental Caries Additional Instructions: GO TO A DENTIST. CALL TOMORROW FROM THE RESOURCE LIST. Scripts Hydrocodone/Apap 5-325 (NORCO 5-325 TABLET) 1 Each Tablet 1 TAB PO PRN Q6HRS PRN for PAIN, #8 TAB 0 Refills Prov: LUANA CAMACHO APRN 03/04/18 Penicillin V Potassium (PENICILLIN V POTASSIUM) 500 Mg Tablet 500 MG PO QID for 7 Days, #28 TAB 0 Refills Prov: LUANA CAMACHO APRN 03/04/18 LUANA CAMACHO APRN Mar 04, 2018 12:05
[2018-03-04] MEDS: HYDROcodone/APAP 5/325MG 1 TAB TABLET PO ONE (12:12)
== END 2018-03-04 12:15 | disposition home or self-care (01) ==
LOC: ER 11:27
DX: K04.7 Periapical abscess without sinus (principal)
CPT/HCPCS: 99283

== ENCOUNTER 2018-04-03 13:56 | Emergency (ER) | payer OTHER ==
[~2018-04-03] VITALS: Ht 185.4 cm; Wt 68.0 kg
[~2018-04-03 13:56] MED LIST changes: +HYDR-3164 PO; +PENI500T PO
[2018-04-03 14:05] VITALS: BP 153/64
[2018-04-03] MEDS ORDERED: CHLO15MO2 PO (14:59)
[2018-04-03] MEDS ORDERED: NAPR500T8 PO (14:59)
[2018-04-03] MEDS ORDERED: PENI500T PO (14:59)
--- NOTE | 2018-04-03 14:59 | PHYS DOC ---
Past Medical History Past Medical History: No Pertinent History Past Surgical History: Appendectomy Alcohol Use: Occasionally Drug Use: Marijuana Adult General Chief Complaint Chief Complaint: DENTAL PROBLEM HPI HPI Patient is a 27 year old male who presents to the ER with complaints of right upper dental pain with swelling of his gums over the last 2 days. Patient states he was here a few months ago and treated for the same problem, however he is unable to afford to have his teeth fixed at this time. Patient denies any fever, nausea, vomiting, or rash. Review of Systems Review of Systems Constitutional: Denies fever or chills [] HENT: Denies nasal congestion or sore throat; see history of present illness[] Respiratory: Denies cough or shortness of breath [] Integument: Denies rash or skin lesions [] Neurologic: Denies headache, focal weakness or sensory changes [] All other systems were reviewed and found to be within normal limits, except as documented in this note. Allergies Allergies Allergies Coded Allergies Type Severity Reaction Last Updated Verified No Known Drug Allergies 11/05/13 No Physical Exam Physical Exam Constitutional: Well developed, well nourished, no acute distress, non-toxic appearance. [] HENT: Normocephalic, atraumatic, bilateral external ears normal, bilateral TMs normal, oropharynx moist, no oral exudates, nose normal; gingival erythema and edema noted in right upper quadrant of patient's mouth, there is a nonfluctuant dental abscess noted posterior to tooth #6, diffuse dental decay is present [] Eyes: conjunctiva normal, no discharge. [] Neck: Normal range of motion, no tenderness, supple, no stridor. [] Skin: Warm, dry, no erythema, no rash. [] Neurologic: Alert and oriented X 3, normal motor function, normal sensory function, no focal deficits noted. [] Psychologic: Affect normal, judgement normal, mood normal. [] Current Patient Data Vital Signs Vital Signs Date Time Temp Pulse Resp B/P (MAP) Pulse Ox O2 Delivery O2 Flow Rate FiO2 04/03/18 14:05 98.4 62 16 153/64 (93) 99 Room Air 98.4 EKG EKG [] Radiology/Procedures Radiology/Procedures [] Course & Med Decision Making Course & Med Decision Making Pertinent Labs and Imaging studies reviewed. (See chart for details) [] Dragon Disclaimer Dragon Disclaimer This electronic medical record was generated, in whole or in part, using a voice recognition dictation system. Departure Departure Impression: Primary Impression: Dental abscess Additional Impressions: Infected dental caries Gingivitis Disposition: 01 HOME, SELF-CARE Condition: STABLE Referrals: NO PCP (PCP) Patient Instructions: Dental Abscess, Gingivitis, [id number] Additional Instructions: Fill prescriptions and use as directed. Follow up with dentist using the referral list provided. Return to the ER if symptoms worsen. Scripts Chlorhexidine Gluconate (PERIDEX) 15 Ml Mouthwash 15-30 ML PO TID for 7 Days, #473 ML 0 Refills Prov: ADRIANO MASON [employer] 04/03/18 Naproxen (NAPROXEN) 500 Mg Tablet.dr 1 TAB PO BID PRN for PAIN, #20 TAB 0 Refills Prov: ADRIANO MASON [employer] 04/03/18 Penicillin V Potassium (PENICILLIN V POTASSIUM) 500 Mg Tablet 1 TAB PO QID, #40 TAB 0 Refills Prov: ADRIANO MASON [employer] 04/03/18 Problem Qualifiers ADRIANO MASON [employer] Apr 03, 2018 14:59
== END 2018-04-03 15:10 | disposition home or self-care (01) ==
LOC: ER 13:56
DX: K04.7 Periapical abscess without sinus (principal); K05.10 Chronic gingivitis, plaque induced
CPT/HCPCS: 99283

== ENCOUNTER 2018-05-20 11:54 | Emergency (ER) | payer OTHER ==
[~2018-05-20] VITALS: Ht 185.4 cm; Wt 68.0 kg
[~2018-05-20 11:54] MED LIST changes: +CHLO15MO2 PO; +NAPR500T8 PO
--- NOTE | 2018-05-20 12:20 | PHYS DOC ---
Past Medical History Past Medical History: No Pertinent History Past Surgical History: Appendectomy Alcohol Use: Occasionally Drug Use: Marijuana Adult General Chief Complaint Chief Complaint: DENTAL PROBLEM HPI HPI Patient is a 27 year old male with a history of poor dentition and multiple tooth extractions who presents with a 3 day history of left jaw and tooth pain. The pain starts just anterior to his left ear and radiates down his jaw. He has very poor dentition but says his bad teeth on that side have never caused pain like this before. He reports difficulty swallowing and has not eaten much in the past day. He has not been seen by a dentist since the symptoms started. Denies fevers, chills, otalgia, nasal congestion, sore throat, chest pain, shortness of breath, recent facial trauma. Review of Systems Review of Systems Constitutional: Denies fever or chills Eyes: Denies change in visual acuity, redness, or eye pain HENT: Denies nasal congestion or sore throat, Reports left jaw and tooth pain Respiratory: Denies cough or shortness of breath GI: Denies abdominal pain, vomiting, diarrhea, reports nausea : Denies dysuria or hematuria Integument: Denies rash or skin lesions Complete systems were reviewed and found to be within normal limits, except as documented in this note. Current Medications Current Medications Current Medications Medications (Trade) Dose Ordered Sig/Lena Start Time Stop Time Status Last Admin Dose Admin Amoxicillin/ Clavulanate Potassium (Augmentin 875/ 125mg) 1 tab 1X ONCE 05/20/18 12:45 05/20/18 12:47 DC 05/20/18 12:59 1 TAB Bupivacaine HCl/ Epinephrine Bitart (Sensorcain-Mpf Epi 0.5%-1:[id number]) 30 ml 1X ONCE 05/20/18 12:45 05/20/18 12:47 DC 05/20/18 13:00 30 ML Dexamethasone (Decadron) 10 mg 1X ONCE 05/20/18 12:45 05/20/18 12:47 DC 05/20/18 13:00 10 MG Allergies Allergies Allergies Coded Allergies Type Severity Reaction Last Updated Verified No Known Drug Allergies 11/05/13 No Physical Exam Physical Exam Constitutional: Well developed, well nourished, appears uncomfortable HENT: Normocephalic, atraumatic, bilateral external ears normal, poor dentition throughout, significant gingivitis noted, patient has had multiple dental extractions as well, point tender large dental yevgeniy to first molar, no obvious abscess Eyes: PERRLA, EOMI, conjunctiva normal, no discharge. [] Neck: Normal range of motion, no tenderness, supple, no stridor. [] Cardiovascular:Heart rate regular rhythm, no murmur [] Lungs & Thorax: Bilateral breath sounds clear to auscultation [] Abdomen: Bowel sounds normal, soft, no tenderness, no masses, no pulsatile masses. [] Skin: Warm, dry, no erythema, no rash. [] Back: No tenderness, no CVA tenderness. [] Extremities: No tenderness, no cyanosis, no clubbing, ROM intact, no edema. [] Neurologic: Alert and oriented X 3, normal motor function, normal sensory function, no focal deficits noted. [] Psychologic: Affect normal, judgement normal, mood normal. [] Current Patient Data Vital Signs Vital Signs Date Time Temp Pulse Resp B/P (MAP) Pulse Ox O2 Delivery O2 Flow Rate FiO2 05/20/18 12:22 98.5 105 18 143/76 (98) 97 Room Air 98.5 EKG EKG [] Radiology/Procedures Radiology/Procedures [] Course & Med Decision Making Course & Med Decision Making Patient is a 27 year old male who presents with three days of left jaw and tooth pain. He has poor dentition with a history of multiple extractions. He is aware of a bad lower left molar but says it has not caused him pain like this before. He reported difficulty swallowing but had no issues swallowing pills here in ED. There was no obvious abscess on exam. Symptomatic treatment and course of antibiotics provided. It was advised he follow up with a dentist as the tooth likely needs to come out. Dragon Disclaimer Dragon Disclaimer This electronic medical record was generated, in whole or in part, using a voice recognition dictation system. Additional Procedures Progress Dental Block Verbal consent obtained from patient. Time out performed. Left inferior alveolar block performed with infiltration of 0.5% Bupivacaine with Epinephrine x 3ml via 25 gauge hypodermic needle. Successful anesthesia obtained. Patient tolerated procedure well and without difficulty. Departure Departure Impression: Primary Impression: Dentalgia Additional Impressions: Infected dental caries Gingivitis Disposition: HOME, SELF-CARE Condition: STABLE Referrals: NO PCP (PCP) Patient Instructions: Dental Caries-Brief, Gingivitis, [id number], Toothache- Brief Additional Instructions: Please continue to use Peridex mouthwash that was previously prescribed. Scripts Oxycodone/Apap 5-325 (PERCOCET 5-325 MG TABLET ) 1 Each Tablet 1 TAB PO PRN Q6HRS PRN for PAIN, #6 TAB 0 Refills Prov: SANJAY ORELLANA DO 05/20/18 Amoxicillin/Potassium Clav (AUGMENTIN 875-125 TABLET) 1 Each Tablet 1 TAB PO BID, #14 TAB Prov: SANJAY ORELLANA DO 05/20/18 Problem Qualifiers SANJAY ORELLANA DO May 20, 2018 12:20
[2018-05-20 12:22] VITALS: BP 143/76
[2018-05-20] MEDS ORDERED: DEXAMETHASONE 4 MG TABLET PO ONE (12:45)
[2018-05-20] MEDS ORDERED: AMOXICILLIN/K CLAV 875/125MG TABLET. PO ONE (12:45)
[2018-05-20] MEDS ORDERED: BUPIVAC MPF-EPI 0.5%-1:200000 30 ML VIAL. INJ ONE (12:45)
[2018-05-20] MEDS ORDERED: AMOX1TAB61 PO (13:19)
[2018-05-20] MEDS ORDERED: HYDR-3164 PO (13:22)
[2018-05-20] MEDS ORDERED: OXYC1TAB15 PO (13:33)
== END 2018-05-20 13:38 | disposition home or self-care (01) ==
LOC: ER 11:54
DX: K02.9 Dental caries, unspecified (principal); K05.10 Chronic gingivitis, plaque induced
CPT/HCPCS: 64400; 99284; J3490; J8540

== ENCOUNTER 2019-09-10 12:07 | Emergency (ER) | payer SELFPAY ==
[~2019-09-10] VITALS: Ht 185.4 cm; Wt 77.2 kg
[~2019-09-10 12:07] MED LIST changes: +AMOX1TAB61 PO
[2019-09-10 12:29] VITALS: BP 146/90
[2019-09-10] MEDS ORDERED: NAPR-514 PO (12:56)
[2019-09-10] MEDS ORDERED: AMOX500T PO (12:56)
--- NOTE | 2019-09-10 12:57 | PHYS DOC ---
Past Medical History Past Medical History: No Pertinent History Past Surgical History: Appendectomy Smoking Status: Current Every Day Smoker Alcohol Use: Occasionally Drug Use: Marijuana General Adult EDM: Chief Complaint: DENTAL PROBLEM HPI: HPI: Patient is a 28 year old male who presents to the emergency department with complaints of lower left dental pain for the last 2 days. Patient denies any fever, cough, shortness of breath, nausea, vomiting, diarrhea, abdominal pain, rash, sore throat, or ear pain. He currently rates pain a 10 out of 10 on a pain scale, he denies any alleviating factors, the pain is worse with palpation and chewing. Patient denies any difficulty swallowing, shortness of breath, or difficulty breathing. Review of Systems: Review of Systems: Constitutional: Denies fever or chills. [] Eyes: Denies change in visual acuity. [] HENT: Denies nasal congestion or sore throat, see HPI. [] Respiratory: Denies cough or shortness of breath. [] Cardiovascular: Denies chest pain or edema. [] GI: Denies abdominal pain, nausea, vomiting, or diarrhea. [] Musculoskeletal: Denies back pain or joint pain. [] Integument: Denies rash. [] Neurologic: Denies headache Lymphatic: Denies swollen glands. [] Psychiatric: Denies depression or anxiety. [] Heart Score: Risk Factors: Risk Factors: DM, Current or recent (<one month) smoker, HTN, HLP, family history of CAD, obesity. Risk Scores: Score 0 - 3: 2.5% MACE over next 6 weeks - Discharge Home Score 4 - 6: 20.3% MACE over next 6 weeks - Admit for Clinical Observation Score 7 - 10: 72.7% MACE over next 6 weeks - Early Invasive Strategies Allergies: Allergies: Allergies Coded Allergies Type Severity Reaction Last Updated Verified No Known Drug Allergies 11/05/13 No Physical Exam: PE: Constitutional: Well developed, well nourished, no acute distress, non-toxic appearance. [] HENT: Normocephalic, atraumatic, bilateral external ears normal, oropharynx moist, nose normal; lower left quadrant diffuse dental caries broken tooth noted, no gingival erythema, no visible dental abscess [] Eyes: PERRLA, EOMI, conjunctiva normal, no discharge. [] Neck: Normal range of motion, no tenderness, supple, no stridor. [] Cardiovascular:Heart rate regular rhythm Lungs & Thorax: Bilateral breath sounds clear to auscultation, Respirations even and unlabored, no retractions, no respiratory distress [] Abdomen: soft, no tenderness, no masses, no pulsatile masses. [] Skin: Warm, dry, no erythema, no rash. [] Extremities: No cyanosis, ROM intact, no edema. [] Neurologic: Alert and oriented X 3, no focal deficits noted. [] Psychologic: Affect normal, judgement normal, mood normal. [] Current Patient Data: Vital Signs: Vital Signs Date Time Temp Pulse Resp B/P (MAP) Pulse Ox O2 Delivery O2 Flow Rate FiO2 09/10/19 12:29 98.1 82 18 146/90 (108) 98 Room Air 98.1 EKG: EKG: [] Radiology/Procedures: Radiology/Procedures: [] Course & Med Decision Making: Course & Med Decision Making Pertinent Labs and Imaging studies reviewed. (See chart for details) [] Dragon Disclaimer: Dragon Disclaimer: This electronic medical record was generated, in whole or in part, using a voice recognition dictation system. Departure Departure Impression: Primary Impression: Infected dental caries Additional Impression: Dentalgia Disposition: HOME, SELF-CARE Condition: STABLE Referrals: NO PCP (PCP) Patient Instructions: Dental Caries-Brief, Dental Pain, [id number] Additional Instructions: Fill prescription(s) and use as directed. Follow up with dentist using the referral list provided. Return to the ER if symptoms worsen. Scripts Naproxen (NAPROXEN) 500 Mg Tablet 1 TAB PO BID PRN for PAIN for 10 Days, #20 TAB 0 Refills Prov: ADRIANO MASON APRN 09/10/19 Amoxicillin (AMOXICILLIN) 500 Mg Tablet 1 TAB PO QID for 10 Days, #40 TAB 0 Refills Prov: ADRIANO MASON APRN 09/10/19 Justicifation of Admission Dx: Justifications for Admission: Justification of Admission Dx: ADRIANO Gibson APRN Sep 10, 2019 12:56
[2019-09-10] MEDS ORDERED: HYDROcodone/APAP 5/325MG 1 TAB TABLET PO ONE (13:00)
== END 2019-09-10 13:08 | disposition home or self-care (01) ==
LOC: ER 12:07
DX: K04.7 Periapical abscess without sinus (principal); K08.89 Other specified disorders of teeth and supporting structures; F17.200 Nicotine dependence, unspecified, uncomplicated
CPT/HCPCS: 99283

== ENCOUNTER 2021-04-19 13:17 | Emergency (ER) | payer SELFPAY ==
[~2021-04-19] VITALS: Ht 185.4 cm; Wt 80.3 kg
[~2021-04-19 13:17] MED LIST changes: +AMOX500T PO; +NAPR-514 PO
[2021-04-19 13:33] VITALS: BP 158/75
--- NOTE | 2021-04-19 17:05 | PHYS DOC ---
Past Medical History Past Medical History: No Pertinent History (JENNTHAI Serrano TRUST ADMINISTRATOR) Past Surgical History: No Surgical History, Appendectomy (THAI HONG TRUST ADMINISTRATOR) Smoking Status: Current Every Day Smoker Alcohol Use: Occasionally Drug Use: Marijuana (JENNTHAI Serrano TRUST ADMINISTRATOR) General Adult EDM: Chief Complaint: DENTAL PROBLEM HPI: HPI: Patient is a 30 year old male presented to the ED today complaining of 2 out of 10 front upper teeth pain, symptoms began a week ago but got worse today. Patient denies any fever or trismus. He states he is in the process of finding a dentist (THAI HONG TRUST ADMINISTRATOR) Review of Systems: Review of Systems: Constitutional: Denies fever or chills. [] HENT: Reports dental pain. Denies nasal congestion or sore throat. [] Musculoskeletal: Denies back pain or joint pain. [] Integument: Denies rash. [] Neurologic: Denies headache, focal weakness or sensory changes. [] Psychiatric: Denies depression or anxiety. [] (JENNTHAI Serrano TRUST ADMINISTRATOR) Heart Score: C/O Chest Pain: N/A Risk Factors: Risk Factors: DM, Current or recent (<one month) smoker, HTN, HLP, family history of CAD, obesity. Risk Scores: Score 0 - 3: 2.5% MACE over next 6 weeks - Discharge Home Score 4 - 6: 20.3% MACE over next 6 weeks - Admit for Clinical Observation Score 7 - 10: 72.7% MACE over next 6 weeks - Early Invasive Strategies (THAI HONG TRUST ADMINISTRATOR) Allergies: Allergies: Allergies Coded Allergies Type Severity Reaction Last Updated Verified No Known Drug Allergies 11/05/13 No (JENNTHAI Serrano TRUST ADMINISTRATOR) Physical Exam: PE: Constitutional: Well developed, well nourished, no acute distress, non-toxic appearance. [] HENT: Normocephalic, atraumatic, bilateral external ears normal, oropharynx moist, no oral exudates, nose normal. [] Very poor dentition, decayed front upper teeth, no gum erythema, no abscess Abdomen: Bowel sounds normal, soft, no tenderness, no masses, no pulsatile masses. [] Skin: Warm, dry, no erythema, no rash. [] Back: No tenderness, no CVA tenderness. [] Extremities: No tenderness, no cyanosis, no clubbing, ROM intact, no edema. [] Neurologic: Alert and oriented X 3, normal motor function, normal sensory function, no focal deficits noted. [] Psychologic: Affect normal, judgement normal, mood normal. [] (THAI HONG APRN) Current Patient Data: Vital Signs: Vital Signs Date Time Temp Pulse Resp B/P (MAP) Pulse Ox O2 Delivery O2 Flow Rate FiO2 04/19/21 13:33 98.3 67 10 158/75 (102) Room Air 98.3 (THAI HONG APRN) EKG: EKG: [] (THAI HONG APRN) Radiology/Procedures: Radiology/Procedures: [] (THAI HONG APRN) Course & Med Decision Making: Course & Med Decision Making Pertinent Labs and Imaging studies reviewed. (See chart for details) This is a 30-year-old male patient presented to the ED today with dental pain. Encouraged this patient to follow-up with a dentist. (THAI HONG APRN) Dragon Disclaimer: Dragon Disclaimer: This electronic medical record was generated, in whole or in part, using a voice recognition dictation system. (THAI HONG APRN) Departure Departure Impression: Primary Impression: Dentalgia Disposition: 01 HOME / SELF CARE / HOMELESS Condition: STABLE Referrals: NO PCP (PCP) follow up with a dentist in 1 week Patient Instructions: Dental Pain, [id number] Additional Instructions: You were seen for dental pain. Please establish care with a dentist and follow up as soon as you can. Scripts Hydrocodone Bit/Acetaminophen (HYDROCODONE-APAP 5-325 ) 1 Tab Tablet 1 TAB PO PRN Q6HRS PRN for PAIN, #5 TAB 0 Refills Prov: THAI HONG APRN 04/19/21 Amoxicillin (AMOXICILLIN) 500 Mg Tablet 1 TAB PO BID, #20 TAB Prov: THAI HONG APRN 04/19/21 Attending Signature I have participated in the care of this patient and I have reviewed and agree with all pertinent clinical information above including history, exam, and recommendations. (GILDA ESTRADA DO) THAI HONG APRN Apr 19, 2021 17:04 GILDA ESTRADA DO Apr 19, 2021 17:56
[2021-04-19] MEDS ORDERED: AMOX500T PO (17:11)
[2021-04-19] MEDS ORDERED: HYDR-2761 PO (17:11)
== END 2021-04-19 17:33 | disposition home or self-care (01) ==
LOC: ER 13:17
DX: K02.9 Dental caries, unspecified (principal); F17.200 Nicotine dependence, unspecified, uncomplicated
CPT/HCPCS: 99283